=== PATIENT | female | born 1950 | race Caucasian/White ===

== ENCOUNTER 2017-02-21 11:25 | Emergency (ER) | payer MEDICARE ==
[~2017-02-21] VITALS: Ht 160 cm; Wt 100.2 kg
[2017-02-21] MEDS ORDERED: SODIUM CHLORIDE 0.9% 1,000 ML IV ONE (12:09)
[2017-02-21 12:29] LABS: BASOPHILS # (AUTO) 0.02 x10^3/uL (0-0.1); BASOPHILS % (AUTO) 0 % (0-1); EOSINOPHILS # (AUTO) 0.14 x10^3/uL (0-0.4); EOSINOPHILS % (AUTO) 2 % (1-7); LYMPHOCYTES # (AUTO) 1.88 x10^3/uL (1-3.4); LYMPHOCYTES % (AUTO) 28 % (22-44); MD NO; MEAN CORPUSCULAR HEMOGLOBIN 32.3 pg (27.0-34.8); MEAN CORPUSCULAR HGB CONC 33.3 g/dL (32.4-35.8); MEAN CORPUSCULAR VOLUME 97.1 fL (80-100); MEAN PLATELET VOLUME 7.6 fL (7.4-10.4); MONOCYTES # (AUTO) 0.52 x10^3/uL (0.2-0.8); MONOCYTES % (AUTO) 8 % (2-9); NEUTROPHILS # (AUTO) 4.26 x10^3/uL (1.8-6.8); NEUTROPHILS % (AUTO) 63 % (42-75); PLATELET COUNT 221 x10^3/uL (130-400); RED BLOOD COUNT 4.12 x10^6/uL (3.82-5.3); RED CELL DISTRIBUTION WIDTH 15.6 % (9.6-15.2)
[2017-02-21] MEDS ORDERED: SODIUM CHLORIDE 0.9% 1,000ML IVBOLUS ONE (12:30)
[2017-02-21 12:43] LABS: ALBUMIN 3.3 g/dL (3.4-5.0); ANION GAP 9 mmol/L (5-15); CALCIUM 8.5 mg/dL (8.5-10.1); CHLORIDE 112 mmol/L (98-107); CREATININE 1.48 mg/dL (0.55-1.02)
[2017-02-21] MEDS ORDERED: GLIM4TAB2 PO (13:37)
[2017-02-21] MEDS ORDERED: METF500T4 PO ×2 (13:38→13:39)
[2017-02-21] MEDS ORDERED: ALLO100T30 PO (13:38)
[2017-02-21] MEDS ORDERED: LOSA100T6 PO (13:39)
[2017-02-21] MEDS ORDERED: ASPI-496 PO (13:40)
[2017-02-21] MEDS ORDERED: ATOR-2 PO (13:40)
[2017-02-21] MEDS ORDERED: SODIUM BICARB 8.4%,50ML SYR. 150 MEQ in DEXTROSE 5% 1,000 ML IV ONE ×2 (14:30→16:00)
[2017-02-21] MEDS ORDERED: SODIUM BICARB 8.4%, 50ML SYRINGE ONE (14:44)
[2017-02-21 16:07] VITALS: BP 139/66
== END 2017-02-21 17:14 | disposition home or self-care (01) ==
LOC: ED 16:57
DX: E86.0 Dehydration (principal); N18.2 Chronic kidney disease, stage 2 (mild)
CPT/HCPCS: 36415; 76770; 80048; 82040; 85025; 96360; 99285; J7030; J7070